=== PATIENT | female | born 1935 | race Caucasian/White ===

== ENCOUNTER 2016-06-23 10:27 | Emergency (ER) | payer OTHER ==
[2016-06-23 10:43] VITALS: BP 175/80; PULSE 85; RESP 20; TEMP 98; O2SAT 90
[2016-06-23] MEDS ORDERED: IPRATROPIUM/ALBUTEROL 3 ML DEYVIAL IH ONE (10:43)
--- NOTE | 2016-06-23 11:32 | UCPHY ---
H & P Time Seen by Provider: 06/23/16 11:25 Patient Type: Established HPI/ROS: Chief complaint. Cough HPI. A 1-year-old female presents emergency department with complaint of bronchitis for 1 year. Cough has been productive for the past 4 days. No fever. She went to the pharmacy several days ago to fill a breathing medicine that she thinks may be Atrovent. She has had recent shortness of breath and congestion and then the cough is productive yellow sputum. Occasional dizziness and nausea. Not sure of her underlying pulmonary diagnosis ROS Constitutional. no fever/chills, no weakness Eyes. no problems with vision ENT. no sore throat, no nasal drainage Cardiovascular. no chest pain Respiratory. Cough and shortness of breath Abdominal. Occasional nausea . no problems urinating MS. no calf pain/swelling, no neck/back pain, no joint pain Skin. no rash Lymph. no swollen glands Neuro. Occasional dizzy Past Medical/Surgical History: Cataract surgery celiac disease hysterectomy probable underlying COPD Social History: Single, nonsmoker, no alcohol Smoking Status: Former smoker Physical Exam: General Appearance: Alert well-developed female no distress vital signs stable though initial O2 saturation 90% on room air Eyes: Pupils equal and round no pallor or injection. ENT, Mouth: Mucous membranes are moist. Respiratory: No retractions. Mild inspiratory expiratory rhonchi Cardiovascular: Regular rate and rhythm. Gastrointestinal: Abdomen is soft and nontender, no masses, bowel sounds normal. Neurological: Awake and alert, sensory and motor exams grossly normal. Skin: Warm and dry, no rashes. Musculoskeletal: Neck is supple nontender. Extremities symmetrical, full range of motion. Psychiatric: Patient is oriented X 3, there is no agitation. Constitutional: Initial Vital Signs Temperature (C) 36.6 C 06/23/16 10:40 Heart Rate 85 06/23/16 10:40 Respiratory Rate 20 06/23/16 10:40 Blood Pressure 175/80 H 06/23/16 10:40 O2 Sat (%) 90 L 06/23/16 10:40 O2 Delivery Mode Room Air Allergies/Adverse Reactions: No Known Allergies Allergy (Verified 01/26/16 10:56) Home Medications: Medication Instructions Recorded Ipratropium 0.03% Nasal [Atrovent 2 sprays EACHNARE BID PRN 09/29/15 0.03% Nasal (*)] Azithromycin [Zithromax] 250 mg PO DAILY #6 tab 06/23/16 predniSONE 40 mg PO DAILY #10 tab 06/23/16 Medical Decision Making - Diagnostics Imaging: Chest x-ray interpreted by me consistent with COPD. No evidence for pneumonia Procedures: [facility] ED Course/Re-evaluation: On re-evaluation patient remained stable. Patient and I discussed treatment plan including criteria for return importance of follow-up and further evaluation. She expresses understanding and agreement Differential Diagnosis: I considered exacerbation of COPD, bronchitis, pneumonia - Data Points Medications Given: Discontinued Medications Albuterol/Ipratropium (Duoneb) 3 ml IH EDNOW ONE Stop: 06/23/16 10:44 Last Admin: 06/23/16 10:53 Dose: 3 ml Departure - Departure Disposition: Home, Routine, Self-Care Clinical Impression: COPD exacerbation Condition: Good Instructions: COPD (Chronic Obstructive Pulmonary Disease) (ED) Additional Instructions: Continue to use your inhaler at home as it has been prescribed. Zithromax is antibiotic. Prednisone each day for the next 5 days. Return for worsening breathing and symptoms including fever. Recheck in 2 days if not better. Make follow-up appointment with your new physician Referrals: Drake Douglas MD [Medical Doctor] - As per Instructions Prescriptions: Azithromycin [Zithromax] 250 mg PO DAILY #6 tab predniSONE 40 mg PO DAILY #10 tab - PQRS PQRS Measurement: 134: Depression screening and followup, PRIME MD-PHQ2 (12 years and older) Over the last 2 weeks, how often have you been bothered by any of the following problems? 1. Feeling down, depressed, or hopeless? 2. Little interest or pleasure in doing things? Patient answered no to both 1 and 2 130: Documentation of medications. patient did not know. 226: Do you smoke? No. 47: 65 and older: Advanced care planning. Patient refused.
== END 2016-06-23 12:02 | disposition home or self-care (01) ==
LOC: CED 10:27
DX: J44.1 Chronic obstructive pulmonary disease with (acute) exacerbation (principal); Z87.891 Personal history of nicotine dependence
CPT/HCPCS: 71020; G0463; 99214-PO

== ENCOUNTER 2016-07-20 17:25 | Emergency (ER) | payer OTHER ==
[2016-07-20 17:40] VITALS: BP 125/98; PULSE 87; RESP 20; TEMP 98.6; O2SAT 91
[2016-07-20] MEDS ORDERED: IPRATROPIUM/ALBUTEROL 3 ML DEYVIAL IH ONE (17:44)
[2016-07-20] MEDS ORDERED: AZITHROMYCIN 250 MG TAB PO ONE (18:58)
[2016-07-20] MEDS ORDERED: ALBUTEROL 3 ML DEYVIAL IH ONE (18:58)
[2016-07-20] MEDS ORDERED: predniSONE 20 MG TAB PO ONE (18:59)
[2016-07-20] MEDS ORDERED: ALBUTEROL INH PREPACK MDI TAKEHOME ONE (19:00)
--- NOTE | 2016-07-20 19:02 | UCPHY ---
H & P Time Seen by Provider: 07/20/16 18:41 Patient Type: Established HPI/ROS: This patient reports nasal congestion and a cough for the past 2 days. She has remote history of smoking that she stopped 40 years ago smoking heavily up until age 38 or so. She reports associated cough also over the past 2 days describes this as a dry cough is nonproductive. She has not noticed any other associated symptoms except for low-grade subjective fevers. ROS: No high fevers or chills. No fatigue. HEENT: No facial pain or headache. No sore throat. She is tolerating good p.o. intake Neuro: No confusion no focal neuro symptoms. Pulmonary: No pleuritic pain. No respiratory distress. Cardiovascular: She denies any lightheadedness or chest pain. No lower extremity swelling. GI: No nausea vomiting or belly pain : No complaints integumentary: No skin rash. 10 point ROS is otherwise negative Past Medical/Surgical History: Former smoker Social History: She lives in a independent living facility. "(she) lives with 150 other people". Smoking Status: Former smoker Physical Exam: General Appearance: Alert, no distress. Eyes: Pupils equal and round no pallor or injection. ENT, Mouth: Mucous membranes moist. No posterior pharyngeal erythema exudates or dysphonia. Nose: Clear discharge bilaterally. No sinus tenderness to percussion. Ears: Clear bilaterally Respiratory: She has faint expiratory wheeze bilaterally. She has a faint crackles at the bases that clear with deep breaths. No increased work of breathing. Cardiovascular: Regular rate and rhythm. No murmur gallop rub. No JVD. No peripheral edema. Gastrointestinal: Abdomen is soft and nontender, no masses, bowel sounds normal. Neurological: Alert with no focal deficits. Skin: Warm and dry, no rashes. Musculoskeletal: Neck is supple nontender. Extremities are symmetrical, full range of motion. Psychiatric: Mood and affect normal. DIFFERENTIAL DIAGNOSIS: After history and physical exam differential diagnosis was considered for acute bronchitis, pneumonia, COPD exacerbation Constitutional: Initial Vital Signs Temperature (C) 37 C 07/20/16 17:37 Heart Rate 87 07/20/16 17:37 Respiratory Rate 20 07/20/16 17:37 Blood Pressure 125/98 H 07/20/16 17:37 O2 Sat (%) 91 L 07/20/16 17:37 O2 Delivery Mode Room Air Allergies/Adverse Reactions: No Known Allergies Allergy (Verified 01/26/16 10:56) Home Medications: Medication Instructions Recorded Ipratropium 0.03% Nasal [Atrovent 2 sprays EACHNARE BID PRN 09/29/15 0.03% Nasal (*)] Azithromycin [Zithromax] 250 mg PO DAILY #4 tab 07/20/16 predniSONE 40 mg PO DAILY #8 tab 07/20/16 MDM/Departure - MDM Diagnostics: Imaging Impressions Chest X-Ray 07/20/16 17:43 Impression: COPD without pneumonia. Little if any change x4 weeks. I also reviewed this chest x-ray that was read primarily by the radiologist-no focal infiltrates Medications Given: Discontinued Medications Albuterol (Proventil Neb) 3 ml IH EDNOW ONE Stop: 07/20/16 18:59 Last Admin: 07/20/16 19:28 Dose: 3 ml Albuterol Sulfate (Proventil Inh Prepack) 1 mdi TAKEHOME EDNOW ONE Stop: 07/20/16 19:01 Last Admin: 07/20/16 19:29 Dose: 1 mdi Albuterol/Ipratropium (Duoneb) 3 ml IH EDNOW ONE Stop: 07/20/16 17:45 Last Admin: 07/20/16 18:03 Dose: 3 ml Azithromycin (Zithromax) 500 mg PO EDNOW ONE PRN Reason: Protocol Stop: 07/20/16 18:59 Last Admin: 07/20/16 19:31 Dose: 500 mg Prednisone (Prednisone) 40 mg PO EDNOW ONE Stop: 07/20/16 19:00 Last Admin: 07/20/16 19:32 Dose: 40 mg ED Course/Re-evaluation: DuoNeb and albuterol neb with increased aeration decreased wheeze subjective improvement, Zithromax p.o. prednisone p.o. Judging by this patient's smoking history and chest x-ray I suspect that she has unrecognized (by her) mild COPD with COPD exacerbation. I counseled regarding this. She appears clinically well. Patient improvement think will do well as an outpatient with albuterol inhaler, prednisone and Zithromax. Follow up with primary care physician. - Depart Disposition: Home, Routine, Self-Care Clinical Impression: COPD exacerbation Condition: Good Instructions: Acute Bronchitis (ED) Additional Instructions: Diagnosis: COPD exacerbation/bronchitis Plan: Humidifier Albuterol inhaler with spacer for cough, wheeze or shortness of breath Prednisone as prescribed Zithromax antibiotic Go to the emergency department for any significant worsening despite the treatment plan Follow up with primary care physician if her symptoms are not resolving over the next 5-7 days with treatment plan. Prescriptions: Azithromycin [Zithromax] 250 mg PO DAILY #4 tab predniSONE 40 mg PO DAILY #8 tab Referrals: Doctor Not,On Staff, MD [Primary Care Provider] - As per Instructions - PQRS PQRS Measurement: 134: Depression screening and followup, PRIME MD-PHQ2 (12 years and older) Over the last 2 weeks, how often have you been bothered by any of the following problems? 1. Feeling down, depressed, or hopeless? 2. Little interest or pleasure in doing things? Patient answered no to both 1 and 2 130: Documentation of medications. Reviewed all patient medications, doses, route and frequency. 226: Do you smoke? [No.] 47: 65 and older: Advanced care planning. She has an advanced directive 51: 18 years old and older with diagnosis of COPD, spirometry performance. SILVIO 52: 18 years old and older with COPD and symptoms of COPD or FEV1<60% predicted prescribed a B Agonist. SILVIO
== END 2016-07-20 19:46 | disposition home or self-care (01) ==
LOC: CED 17:25
DX: J44.0 Chronic obstructive pulmonary disease with (acute) lower respiratory infection (principal); J20.9 Acute bronchitis, unspecified; Z87.891 Personal history of nicotine dependence
CPT/HCPCS: 71020; G0463; 99214-PO

== ENCOUNTER → 2016-09-16 | Outpatient (CLI) | payer OTHER | LOC: CIMAGING 10:56 | PROVIDERS: ATTEND Internal Medicine | DX: M25.522 Pain in left elbow (principal); W22.09XA Striking against other stationary object, initial encounter | CPT/HCPCS: 73080-PO ==

== ENCOUNTER → 2017-12-30 | Outpatient (CLI) | payer OTHER | LOC: FIMAGING 15:42 | PROVIDERS: ATTEND Surgery | DX: L97.821 Non-pressure chronic ulcer of other part of left lower leg limited to breakdown of skin (principal); I87.2 Venous insufficiency (chronic) (peripheral) ==